=== PATIENT | male | born 1930 | race Caucasian/White ===

== ENCOUNTER 2019-07-08 13:46 | Emergency (ER) | payer MEDICARE, OTHER ==
[~2019-07-08] VITALS: Ht 172.7 cm; Wt 70.3 kg
[~2019-07-08 13:46] MED LIST: CLOP75TA41 PO; METO-158 PO; TRAM50TA2 PO
[2019-07-08 14:02] VITALS: BP 165/88
[2019-07-08] MEDS ORDERED: TETANUS-DIPTH-ACEL PERTUSSIS 0.5ML SYRG IM ONE (14:15)
== END 2019-07-08 16:10 | disposition home or self-care (01) ==
LOC: ER 13:46 → EDBD 13:46 → ER 16:10
DX: S01.01XA Laceration without foreign body of scalp, initial encounter (principal); E78.5 Hyperlipidemia, unspecified; I10 Essential (primary) hypertension; Z86.73 Personal history of transient ischemic attack (TIA), and cerebral infarction without residual deficits; W18.09XA Striking against other object with subsequent fall, initial encounter; Y93.89 Activity, other specified; Y92.89 Other specified places as the place of occurrence of the external cause; Y99.8 Other external cause status
CPT/HCPCS: 70450; 72125; 90471; 90715